=== PATIENT | female | born 1950 | race Caucasian/White ===

== ENCOUNTER → 2022-10-27 | Outpatient (CLI) | payer MEDICARE ==
[~2022-10-27] MED LIST: IOHEXOL 350 MG/ML 100ML INFUS..BTL IV ONE; METOPROLOL TARTRATE 1 MG/ML 5ML VIAL IV ONE
== END | disposition home or self-care (01) ==
LOC: RAH 11:25
PROVIDERS: ATTEND Internal Medicine Cardiovascular Disease
DX: I20.9 Angina pectoris, unspecified (principal); R06.02 Shortness of breath
CPT/HCPCS: 75574; J3490; Q9967

== ENCOUNTER 2023-06-22 19:06 | Observation (INO) | payer MEDICARE ==
[~2023-06-22] VITALS: Ht 154.9 cm; Wt 89.4 kg
[2023-06-22 21:39] LABS: BASOPHILS # (AUTO) 0.04 K/uL (0.00-0.20); BASOPHILS % (AUTO) 0.3 % (0.0-5.0); EOSINOPHILS # (AUTO) 0.15 K/uL (0.00-0.70); EOSINOPHILS % (AUTO) 1.3 % (0.0-8.0); HEMATOCRIT 40.4 % (36-48); IMMATURE GRANULOCYTE ABSOLUTE 0.05 K/uL (0-1); MEAN CORPUSCULAR HEMOGLOBIN 27.8 pg (27.0-33.0); MEAN CORPUSCULAR HGB CONC 32.7 g/dL (32.0-36.0); MEAN CORPUSCULAR VOLUME 85.2 fL (79-99); MONOCYTES # (AUTO) 0.8 K/uL (0.1-1.0); NEUTROPHILS # (AUTO) 8.7 K/uL (1.8-7.7); PLATELET COUNT (AUTO) 302 K/uL (130-400); RED BLOOD CELL COUNT(AUTO) 4.74 MIL/uL (4.00-5.50); RED CELL DISTRIBUTION WIDTH 13.6 % (11.0-15.5); WHITE BLOOD COUNT (AUTO) 11.7 K/uL (4.8-10.8)
[2023-06-22 22:00] LABS: ADD UA MICROSCOPIC YES; APPEARANCE,URINE CLEAR (CLEAR); BILIRUBIN,URINE NEGATIVE (NEGATIVE); COLOR,URINE LIGHT-YELLOW (YELLOW); GLUCOSE, URINE (UA) 200 mg/dL (NEGATIVE); KETONES,URINE NEGATIVE (NEGATIVE); LEUKOCYTE ESTERASE ,URINE NEGATIVE Leu/uL (NEGATIVE); NITRATE,URINE NEGATIVE (NEGATIVE); OCCULT BLOOD,URINE NEGATIVE (NEGATIVE); PH,URINE 6.5 (5.0-8.0); PROTEIN,URINE 20 mg/dL (NEGATIVE); UROBILINOGEN,URINE 0.2 mg/dL (0.2-1.0)
[2023-06-22 22:05] LABS: CREATININE 0.7 mg/dL (0.5-1.5); POTASSIUM 3.7 mmol/L (3.5-5.1)
[2023-06-22 22:09] LABS: MUCUS,URINE RARE LPF (None Seen); RBC,URINE 0-1 /HPF (0-1); SQUAMOUS EPITHELIAL CELL,UR RARE /HPF (0-2); WBC,URINE 0-1 /HPF (0-1)
[2023-06-22 22:09] LABS: ALBUMIN 3.4 g/dL (3.5-5.0); BILIRUBIN,TOTAL 0.5 mg/dL (0.2-1.0); TOTAL PROTEIN, SERUM 7.8 g/dL (6.0-8.3)
[2023-06-22] MEDS ORDERED: MORPHINE 2 MG SYG IVP ONE (22:30)
[2023-06-22] MEDS ORDERED: 0.9%NACL 1000ML 1,000 ML IV ONE (22:30)
[2023-06-22] MEDS ORDERED: ONDANSETRON 4MG INJ IVP ONE (22:30)
[2023-06-22] MEDS ORDERED: IOHEXOL 350 MG/ML 100ML INFUS..BTL IV ONE (23:06)
[2023-06-23] VITALS (9 sets, daily range): BP systolic 109–140; BP diastolic 43–63; PULSE 74–93; RESP 16–19; O2SAT 95
[2023-06-23] MEDS ORDERED: LEVOFLOXACIN 750 MG/D5W 150ML BAG IV ONE (00:30)
[2023-06-23] MEDS ORDERED: MORPHINE 2 MG SYG IM ONE (01:00)
[2023-06-23] MEDS: DEXTROSE 5 %-0.45 % NACL 1,000 ML IV SCH ×2 (02:53→22:17)
[2023-06-23] MEDS ORDERED: METF-444 PO (03:36)
[2023-06-23] MEDS ORDERED: ESTR1TAB21 PO (03:36)
[2023-06-23] MEDS ORDERED: INSLAN SQ (03:36)
[2023-06-23] MEDS ORDERED: OMEP40CA21 PO (03:36)
[2023-06-23] MEDS ORDERED: ACET-2743 PO (03:36)
[2023-06-23] MEDS ORDERED: FAMO40TA75 PO (03:36)
[2023-06-23] MEDS ORDERED: LOPE2TAB26 PO (03:36)
[2023-06-23] MEDS ORDERED: AMIT10TA6 PO (03:36)
[2023-06-23] MEDS ORDERED: ROSU5TAB12 PO (03:36)
[2023-06-23] MEDS ORDERED: LEVO50CA4 PO (03:36)
[2023-06-23] MEDS ORDERED: METO25TA6 PO (03:36)
[2023-06-23] MEDS ORDERED: TIZA-194 PO (03:36)
[2023-06-23] MEDS ORDERED: HYDR25TA PO (03:36)
[2023-06-23] MEDS ORDERED: AEC81 PO (03:36)
[2023-06-23] MEDS ORDERED: INSU100V IV (03:36)
[2023-06-23] MEDS ORDERED: DICY-20 PO (03:36)
[2023-06-23] MEDS ORDERED: SUCR1ORA15 PO (03:36)
[2023-06-23] MEDS: ONDANSETRON 4MG INJ IVP PRN ×2 (04:38→15:29)
[2023-06-23] MEDS: METRONIDAZOLE 500MG/100ML BAG 100 ML IVPB SCH ×3 (05:59→21:34)
[2023-06-23 06:18] LABS: BASOPHILS # (AUTO) 0.03 K/uL (0.00-0.20); BASOPHILS % (AUTO) 0.3 % (0.0-5.0); EOSINOPHILS # (AUTO) 0.19 K/uL (0.00-0.70); EOSINOPHILS % (AUTO) 1.9 % (0.0-8.0); HEMATOCRIT 35.6 % (36-48); IMMATURE GRANULOCYTE ABSOLUTE 0.03 K/uL (0-1); LYMPHOCYTES # (AUTO) 1.9 K/uL (1.0-4.8); LYMPHOCYTES % (AUTO) 19.5 % (21.0-51.0); MEAN CORPUSCULAR HEMOGLOBIN 27.7 pg (27.0-33.0); MEAN CORPUSCULAR HGB CONC 33.4 g/dL (32.0-36.0); MONOCYTES # (AUTO) 0.9 K/uL (0.1-1.0); MONOCYTES % (AUTO) 9.2 % (3.0-13.0); NEUTROPHILS # (AUTO) 6.8 K/uL (1.8-7.7); NEUTROPHILS % (AUTO) 68.8 % (40.0-77.0); PLATELET COUNT (AUTO) 279 K/uL (130-400); RED BLOOD CELL COUNT(AUTO) 4.29 MIL/uL (4.00-5.50); WHITE BLOOD COUNT (AUTO) 9.9 K/uL (4.8-10.8)
[2023-06-23 06:33] LABS: ALBUMIN 2.9 g/dL (3.5-5.0); BILIRUBIN,TOTAL 0.7 mg/dL (0.2-1.0); CREATININE 0.6 mg/dL (0.5-1.5); POTASSIUM 3.7 mmol/L (3.5-5.1); TOTAL PROTEIN, SERUM 6.9 g/dL (6.0-8.3)
[2023-06-23] MEDS: ACETAMINOPHEN 325 MG TAB PO PRN (15:28)
[2023-06-23] MEDS ORDERED: [UNRECOGNIZED DRUG - REMARK] MISC SCH (19:30)
[2023-06-23] MEDS ORDERED: ACETAMINOPHEN 500 MG TABLET PO PRN (19:30)
[2023-06-23] MEDS ORDERED: FAMOTIDINE 40 MG PO PRN (19:30)
[2023-06-23] MEDS ORDERED: INSULIN GLARGINE 100 UNITS/ML 10 ML VIAL SQ SCH (21:00)
[2023-06-23] MEDS ORDERED: METOPROLOL TARTRATE 25 MG TAB PO SCH (21:00)
[2023-06-23] MEDS ORDERED: AMITRIPTYLINE 10MG TAB PO SCH (21:00)
[2023-06-23] MEDS: PANTOPRAZOLE 40 MG TAB DR PO SCH (21:33)
[2023-06-23] MEDS: SUCRALFATE 1 GM TABLET PO SCH (21:33)
[2023-06-23] MEDS: METFORMIN HCL 500 MG TABLET PO SCH (21:33)
[2023-06-24] VITALS (8 sets, daily range): BP systolic 123–137; BP diastolic 57–75; PULSE 60–76; RESP 16–20; TEMP 98.2; O2SAT 95
[2023-06-24] MEDS ORDERED: LEVOFLOXACIN 500 MG/D5W 100 ML 100 ML IV SCH
[2023-06-24] MEDS: DEXTROSE 5 %-0.45 % NACL 1,000 ML IV SCH (04:10)
[2023-06-24] MEDS: METRONIDAZOLE 500MG/100ML BAG 100 ML IVPB SCH ×2 (04:42→14:34)
[2023-06-24] MEDS: ACETAMINOPHEN 325 MG TAB PO PRN (04:42)
[2023-06-24] MEDS ORDERED: LEVOTHYROXINE 50 MCG TABLET PO SCH (06:30)
[2023-06-24] MEDS: METFORMIN HCL 500 MG TABLET PO SCH (08:54)
[2023-06-24] MEDS: PANTOPRAZOLE 40 MG TAB DR PO SCH (08:54)
[2023-06-24] MEDS: SUCRALFATE 1 GM TABLET PO SCH ×2 (08:54→14:34)
[2023-06-24] MEDS ORDERED: ASPIRIN 81 MG EC TAB PO SCH (09:00)
[2023-06-24] MEDS ORDERED: HYDROCHLOROTHIAZIDE 25 MG TABLET PO SCH (09:00)
[2023-06-24] MEDS ORDERED: LOPERAMIDE HCL 2 MG CAP PO SCH (09:00)
[2023-06-24] MEDS ORDERED: ESTRADIOL 1 MG PO SCH (09:00)
[2023-06-24] MEDS ORDERED: ATORVASTATIN 20 MG TABLET PO SCH (09:00)
== END 2023-06-24 16:00 | disposition home or self-care (01) ==
LOC: EDH 19:06 → INTOOBSV 06-23 00:55 → EDHIP 06-23 00:55 → 3DH 06-23 04:49
PROVIDERS: ADMIT Internal Medicine; ATTEND Internal Medicine
DX: K57.92 Diverticulitis of intestine, part unspecified, without perforation or abscess without bleeding (principal); E11.65 Type 2 diabetes mellitus with hyperglycemia; R10.32 Left lower quadrant pain; E78.5 Hyperlipidemia, unspecified; I10 Essential (primary) hypertension; Z90.710 Acquired absence of both cervix and uterus; Z90.49 Acquired absence of other specified parts of digestive tract; Z96.653 Presence of artificial knee joint, bilateral; Z88.0 Allergy status to penicillin
CPT/HCPCS: 96361 ×2; 96375; 99285; 80053 ×2; 83690; 85025 ×2; 87040 ×2; 83605 ×2; 81001; 36415 ×2; 74177; 96372; 96376; 96365; 96366 ×2; 82948 ×5; 96367; J2270 ×2; J7030; J2405 ×3; Q9967; J1815; J1956 ×2; J3490 ×5; G0378 ×2